=== PATIENT | female | born 1945 | race Caucasian/White ===

== ENCOUNTER 2025-05-27 21:39 | Emergency (ER) | payer OTHER ==
[~2025-05-27] VITALS: Ht 160 cm; Wt 67.1 kg
[2025-05-27 22:28] LABS: PLATELET COUNT (AUTO) 337 K/uL (150-450); RED BLOOD CELL COUNT(AUTO) 3.83 MIL/uL (4.0-5.2); RED CELL DISTRIBUTION WIDTH 13.2 % (11.5-15.0); WHITE BLOOD COUNT (AUTO) 10.0 K/uL (4.3-11.0)
[2025-05-27 22:35] LABS: CALCIUM, SERUM 8.9 mg/dL (8.5-10.1); CREATININE 0.8 mg/dL (0.6-1.3); SODIUM SERUM 144 mmol/L (136-145); UREA NITROGEN, BLOOD 13 mg/dL (7-18)
[2025-05-27 22:44] LABS: ASPARTATE AMINOTRANSFERASE 18 U/L (15-37); TOTAL PROTEIN, SERUM 6.6 g/dL (6.4-8.2)
[2025-05-28 01:14] VITALS: BP 132/66; TEMP 97.1; O2SAT 99
== END 2025-05-28 01:15 | disposition home or self-care (01) ==
LOC: EDBD 21:40 → ER 21:40
DX: R06.02 Shortness of breath (principal); R53.1 Weakness; F03.90 Unspecified dementia, unspecified severity, without behavioral disturbance, psychotic disturbance, mood disturbance, and anxiety; E78.5 Hyperlipidemia, unspecified; Z20.822 Contact with and (suspected) exposure to COVID-19
CPT/HCPCS: 36415; 71045-TC; 80053-TC; 83735-TC; 85025-TC; 86140-TC